=== PATIENT | female | born 1970 | race Caucasian/White ===

== ENCOUNTER 2019-01-26 14:43 | Emergency (ER) | payer BC, OTHER ==
--- NOTE | 2019-01-26 14:59 | ED ---
Lower Extremity - HPI Summary HPI Summary: Patient is a 48 y/o female who presents to the ED s/p foot injury around 11:00. This morning she was walking downstairs and missed a few steps, injuring her right foot. Patient heard a crunch and was not able to bear weight on her foot. Patient took Ibuprofen and applied ice to the area, however she is still having pain. Pain is rated a 4/10 in severity. She states that her muscles feel tight and her foot is swollen. Patient denies any bruising. She denies the use of blood thinners. - History of Current Complaint Chief Complaint: EDExtremityLower Stated Complaint: POSS BROKEN RIGHT FOOT PER PT Time Seen by Provider: 01/26/19 14:57 Hx Obtained From: Patient Mechanism Of Injury: Fall From Height Of: - several stairs Onset/Duration: Still Present - 11:00 this morning Severity Currently: Moderate Pain Intensity: 4 Pain Scale Used: 0-10 Numeric Timing: Constant Location: Is Discrete @ - R foot Character Of Pain: Stiffness - tightness Associated Signs And Symptoms: Positive: Swelling. Negative: Bruising Aggravating Factor(s): Weight Bearing Able to Bear Weight: No - Allergies/Home Medications Allergies/Adverse Reactions: Allergies Allergy/AdvReac Type Severity Reaction Status Date / Time No Known Allergies Allergy Verified 01/26/19 14:54 PMH/Surg Hx/FS Hx/Imm Hx Endocrine/Hematology History: Denies: Hx Diabetes Cardiovascular History: Denies: Hx Hypertension Infectious Disease History: No Infectious Disease History: Denies: Traveled Outside the [place] in Last 30 Days - Family History Known Family History: Positive: Cardiac Disease - CAD, Hypertension, Diabetes - Social History Alcohol Use: None Hx Substance Use: No Substance Use Type: Reports: None Hx Tobacco Use: No Smoking Status (MU): Never Smoked Tobacco Review of Systems Positive: Myalgia - R foot pain/tightness, Edema - R foot Negative: Bruising All Other Systems Reviewed And Are Negative: Yes Physical Exam - Summary Physical Exam Summary: Appearance: well appearing, no pain distress Skin: warm, dry, reflects adequate perfusion, no swelling or redness of right foot Head/face: normal Eyes: EOMI, THERESA ENT: mucous membranes moist Neck: supple, non-tender Respiratory: CTA, breath sounds present Cardiovascular: RRR, pulses symmetrical Abdomen: non-tender, soft Bowel Sounds: present Musculoskeletal: strength/ROM intact, no pain of right malleoli or talus, tenderness to arch of right foot, normal phalangeal bones and metatarsals, Lisfranc discomfort, mild crepitus with drawer test Neuro: normal, sensory motor intact, A&Ox3 Triage Information Reviewed: Yes Vital Signs On Initial Exam: Initial Vitals Temp Pulse Resp BP Pulse Ox 98.8 F 94 16 137/78 99 01/26/19 14:49 01/26/19 14:49 01/26/19 14:49 01/26/19 14:49 01/26/19 14:49 Vital Signs Reviewed: Yes Procedures - Splinting Right Lower Extremity Location: Right ankle Hand-Made Type: orthoglass Splint: posterior walking Pre-Proc Neuro Vasc Exam: normal Post-Proc Neuro Vasc Exam: normal Diagnostics - Vital Signs Vital Signs Temp Pulse Resp BP Pulse Ox 01/26/19 14:49 98.8 F 94 16 137/78 99 - Laboratory Lab Statement: Any lab studies that have been ordered have been reviewed, and results considered in the medical decision making process. - Radiology Foot XR Radiology Interpretation Completed By: ED Physician Summary of Radiographic Findings: Proximal third metatarsal shaft fracture. Pending official radiology report. Re-Evaluation - Re-Evaluation First Eval Re-Evaluation Time: 15:38 Change: Unchanged Comment: Discussed XR findings. Lower Extremity Course/Dx - Course Course Of Treatment: Nurse's notes reviewed. The patient with mild crepitance and no fracture seen at the proximal shaft of the third metatarsal. X-ray originally read as negative by radiology, addended to report the fracture. Discussed with the orthopedist given the possibility of Lisfranc injury. Posterior splint applied and patient put on crutches. She will follow up with orthopedic the morning. - Diagnoses Differential Diagnosis/HQI/PQRI: Positive: Other - Lisfranc injury, metatarsal fracture, foot sprain, contusion Provider Diagnoses: Fracture of third metatarsal bone - Physician Notifications Discussed Care Of Patient With: Debbie To Time Discussed With Above Provider: 15:40 Instructed by Provider To: Other - Dr. To will follow up with the patient tomorrow. At 15:58 Dr. Barrera said he will add an addendum to the radiology report. Discharge - Sign-Out/Discharge Documenting (check all that apply): Patient Departure - Discharge Patient Received Moderate/Deep Sedation with Procedure: No - Discharge Plan Condition: Good Disposition: HOME Prescriptions: Hydrocodone/Acetaminophen [[place] 5-325 Tablet] 1 each PO TID PRN #10 tablet MDD 3 PRN Reason: Severe Pain Patient Education Materials: Foot Fracture in Adults (ED) Referrals: Debbie To MD [Medical Doctor] - Sav Rose MD [Primary Care Provider] - Additional Instructions: Ice, elevate and no weightbearing. Walk with crutches. Call the orthopedist first thing in the morning for prompt follow-up. Ibuprofen for baseline pain. - Billing Disposition and Condition Condition: GOOD Disposition: Home - Attestation Statements Document Initiated by Liliya: Yes Documenting Scribe: Karol Rao Provider For Whom Liliya is Documenting (Include Credential): Elvis Abdullahi MD Scribe Attestation: Karol Boothe, scribed for Elvis Abdullahi MD on 01/26/19 at 1727. Scribe Documentation Reviewed: Yes Provider Attestation: The documentation as recorded by the [email or web address] diaz accurately reflects the service I personally performed and the decisions made by , Elvis Abdullahi MD Status of Scribe Document: Viewed
[2019-01-26 16:00] VITALS: BP 117/68
== END 2019-01-26 15:59 | disposition home or self-care (01) ==
LOC: ED 14:43
DX: S92.331A Displaced fracture of third metatarsal bone, right foot, initial encounter for closed fracture (principal); W10.9XXA Fall (on) (from) unspecified stairs and steps, initial encounter; Y92.018 Other place in single-family (private) house as the place of occurrence of the external cause
CPT/HCPCS: 99282

== ENCOUNTER 2019-01-30 08:49 | Day surgery (SDC) | payer OTHER ==
[2019-01-30] MEDS ORDERED: ceFAZolin 2 GM PREMIX in ORs 2 GM/50 ML BAG IVPB ONE (09:06)
[2019-01-30] MEDS ORDERED: Lidocaine 2% PF * 5 ML VIAL ONE ×2 (09:58→09:59)
[2019-01-30] MEDS ORDERED: Midazolam* 1 MG/ML 2 ML VIAL (2 MG) ONE (09:58)
[2019-01-30] MEDS ORDERED: fentaNYL* 50 MCG/ML 2 ML VIAL (100 MCG VIAL) ONE (09:58)
[2019-01-30] MEDS ORDERED: Propofol* 10 MG/ML 20 ML BTL ONE (09:58)
[2019-01-30] MEDS ORDERED: Dexmedetomidine* 200 MCG/2 ML 2 ML VIAL ONE (10:00)
[2019-01-30] MEDS ORDERED: ROPIVACAINE 5 MG/ML 30 ML BTL (0.5%) ONE (10:00)
[2019-01-30] MEDS ORDERED: Bupivacaine 0.5%* 50 ML VIAL ONE (10:34)
[2019-01-30] MEDS ORDERED: EPHEDrine (Pressors)* 50 MG/ML VIAL ONE (11:31)
[2019-01-30] MEDS ORDERED: Dexamethasone IV* 4 MG/ML 1 ML (4 MG) ONE (11:31)
[2019-01-30] MEDS ORDERED: HYDROmorphone INJ1* 1 MG/ML SYRINGE IV PRN (11:47)
[2019-01-30] MEDS ORDERED: DiMENhydriNATE IV* 50 MG/ML VIAL IV PUSH PRN (11:47)
[2019-01-30] MEDS ORDERED: oxyCODONE TAB* 5 MG TAB PO PRN (11:47)
[2019-01-30] MEDS ORDERED: Naloxone* 0.4 MG/ML 1 ML VIAL IV PRN (11:47)
[2019-01-30] MEDS ORDERED: Ketorolac INJ* 30 MG/ML 1 ML VIAL ONE (12:13)
[2019-01-30] MEDS ORDERED: Ondansetron INJ* 2 MG/ML VIAL ONE (12:13)
[2019-01-30] MEDS ORDERED: Metoclopramide IV* 5 MG/ML 2 ML VIAL ONE (12:13)
[2019-01-30] MEDS ORDERED: Acetaminophen IV 1GM/100ML * 100 ML ONE (12:14)
--- NOTE | 2019-01-30 13:10 | OP ---
Operative Report - Blank - Operative Report Date of Operation: 01/30/19 Note: PATIENT: Yeni Ruiz DATE OF : 1970 DATE OF SURGERY: 01/30/2019 SURGEON: Juan Li MD MARKETING SALES MANAGER: YOLIE Toro, whos assistance was necessary for positioning, retraction, help with instrumentation, and closure. ANESTHESIOLOGIST: Dr. Miller PREOPERATIVE DIAGNOSIS: Right foot Lisfranc injury with 2nd TMT and Lisfranc joint dislocations, medial cuneiform fracture, and 3rd and 4th metatarsal fractures. POSTOPERATIVE DIAGNOSIS: Right foot Lisfranc injury with 1st TMT instability, 2nd TMT and Lisfranc joint dislocations, medial cuneiform fracture, and 3rd and 4th metatarsal fractures. OPERATION: 1. Right foot open reduction and internal fixation of the 1st TMT joint 2. Right foot open reduction and internal fixation of the 2nd TMT joint 3. Right foot open reduction and internal fixation of the medial cuneiform fracture 4. Right foot closed treatment of 3rd and 4th metatarsal fractures ANESTHESIA: General + nerve block IMPLANTS: Arthrex CFS plate and screws and 4.0mm cannulated screw TOURNIQUET TIME: Less than 1 hour with a well padded calf tourniquet at 225 mmHg SPECIMENS: none ESTIMATED BLOOD LOSS: minimal COMPLICATIONS: none STATUS: Stable from the operating room to the recovery room and then home. INDICATIONS FOR PROCEDURE: Yeni sustained a right foot Lisfranc injury. Both operative and non operative treatment alternatives were reviewed. Further, the nature and risks of surgery were reviewed in careful detail, in the office as well as the pre-operative holding area. Our discussions regarding the risks of surgery included, but were not limited to, infection, wound problems, nerve injury, neuroma, RSD, persistent symptoms, blood clot, fracture, post-traumatic arthritis, hardware pain, need for further surgery, malunion, nonunion, persistent midfoot instability, failure of the surgery, and even the remote chance of catastrophic complication, including loss of limb. DESCRIPTION OF PROCEDURE: The patient was seen in the preoperative holding unit and informed written consent was obtained. The appropriate extremity was marked. The patient was then brought to the operating room and carefully positioned on the operating room table. Anesthesia was induced. All bony prominences were padded with great care. A chlorhexidine based pre-scrub was performed followed by a chloraprep prep and drape in standard sterile fashion. A surgical safety pause was then conducted in which we confirmed the appropriate patient, extremity, planned procedure, availability of equipment, indication and administration of prophylactic antibiotics, and DVT prophylaxis in the form of a compression boot on the non-surgical extremity. We began by placing a well-padded calf tourniquet in a sterile fashion 3 finger breadths beneath the fibular head. We then performed an Esmarch exsanguination of the limb and inflated the tourniquet to 225 mmHg. I utilized a longitudinal incision centered at the base of the first and second metatarsals. I carefully dissected down through the soft tissues with great care taken to protect the superficial and deep neurovascular structures. The deep neurovascular bundle was visualized and carefully protected throughout the procedure. I then exposed the first and second tarsometatarsal joints, both of which were subluxated and grossly unstable. I also exposed the fracture at the medial cuneiform and cleaned out the fracture hematoma. This resulted in a nice visualization of the joints. The joints were carefully inspected and given the lack of comminution of the articular surface, I elected not to proceed with a primary fusion, and instead perform an ORIF as we had discussed preoperatively. The first TMT joint was manually reduced and a 0.062 K-wire was used to hold the joint provisionally reduced. Fluoroscopy was used to confirm a good reduction. A straight plate was then chosen and contoured to fit the dorsum of the first TMT joint and medial column. This was held provisionally with olive wires and then 5 screws were placed into the first metatarsal and medial cuneiform. The provisional fixation was then removed and the joint was held well reduced. This was confirmed fluoroscopically. All of the screws had excellent purchase. I then turned my attention to the medial cuneiform fracture and second TMT joint. The fracture was reduced provisionally with a dental pick and then a large pointed reduction clamp was used to reduce the second TMT joint and Lisfranc joint complex. A separate incision was made medially and a guidewire for a 4.0 mm cannulated screw was driven from the medial cuneiform through the base of the second metatarsal under fluoroscopic guidance. This was measured and then overdrilled with a cannulated drill. A 4.0 mm cannulated screw was then placed over the guidewire. The pointed reduction clamp was then removed and the joints and fracture were held well reduced by the hardware. Fluoroscopy was again used to confirm this. There did not appear to be any hardware in any of the joints. I examined the intercuneiform joints, and did not appreciate any instability. Fluoroscopy was then used to image the 3rd and 4th metatarsal fractures, which appeared well reduced and without any correlated joint instability. Therefore, I decided to treat the 3rd and 4th metatarsal fractures in a closed manner. Final fluoroscopic images were obtained. At this point, we irrigated copiously and then closed in layers meticulously utilizing 3-0 Monocryl and 3-0 nylon for the skin. A sterile dressing was then applied followed by a splint with the ankle in a neutral position. The patient was then awakened from anesthesia and transferred to the recovery room in stable condition. There were no complications. All needle and sponge counts were correct at the end of the case. ATTESTATION: I attest I was present and scrubbed and performed the critical portions of the procedure myself. POSTOPERATIVE PLAN: Follow up will be in 2 weeks for likely suture removal and postop x-rays. The postoperative plan is to be [id number] for 2 months , then weight-bearing as tolerated in a boot between months 2-3, and then into regular shoes at 3 months postop.
[2019-01-30 13:42] VITALS: BP 128/70
[2019-01-30] MEDS ORDERED: oxyCODONE TAB* 5 MG TAB ONE (14:01)
[2019-01-30] MEDS ORDERED: Cyclobenzaprine TAB* 10 MG PO ONE (14:11)
== END 2019-01-30 20:09 | disposition home or self-care (01) ==
LOC: OR 08:49
PROVIDERS: ATTEND Orthopaedic Surgery
DX: S92.331A Displaced fracture of third metatarsal bone, right foot, initial encounter for closed fracture (principal); S92.341A Displaced fracture of fourth metatarsal bone, right foot, initial encounter for closed fracture; S92.241A Displaced fracture of medial cuneiform of right foot, initial encounter for closed fracture; S93.324A Dislocation of tarsometatarsal joint of right foot, initial encounter; W10.9XXA Fall (on) (from) unspecified stairs and steps, initial encounter; Y92.9 Unspecified place or not applicable; G89.18 Other acute postprocedural pain
CPT/HCPCS: 81025; A9270-GY; C1713; C1776; J0690; J1100; J1885; J2250; J2405; J2704; J2765; J2795; J3010; J3490

== ENCOUNTER → 2019-06-03 05:43 | Day surgery (SDC) | payer OTHER ==
[~2019-06-03 05:43] MED LIST: Acetaminophen IV 1GM/100ML * 1,000 MG/100 ML VIAL IVPB ONE; Acetaminophen IV 1GM/100ML * 100 ML ONE; Buffered Lidocaine 1% SYRIN* 1 ML/SYRINGE INTRADERM ONE; Bupivacaine 0.5%* 50 ML MDV VIAL ONE; Dexamethasone IV* 4 MG/ML 1 ML (4 MG) ONE; DiMENhydriNATE IV* 50 MG/ML VIAL IV PUSH PRN; DiMENhydriNATE IV* 50 MG/ML VIAL ONE; Famotidine IV* 10 MG/ML 2 ML (20 mg) IV ONE; Famotidine IV* 10 MG/ML 2 ML (20 mg) ONE; HYDROmorphone INJ1* 1 MG/ML SYRINGE IV PRN; Ketorolac INJ* 30 MG/ML 1 ML VIAL ONE; Lactated Ringers 1000 ML Bag* 1,000 ML IV SCH; Midazolam* 1 MG/ML 5 ML VIAL (5 MG) ONE; Naloxone* 0.4 MG/ML 1 ML VIAL IV PRN; Ondansetron INJ* 2 MG/ML VIAL ONE; Propofol* 10 MG/ML 20 ML BTL ONE; ceFAZolin 2 GM PREMIX in ORs 2 GM/50 ML BAG ONE; fentaNYL* 50 MCG/ML 2 ML VIAL (100 MCG VIAL) ONE; oxyCODONE TAB* 5 MG TAB ONE; oxyCODONE TAB* 5 MG TAB PO PRN
--- NOTE | 2019-06-03 08:46 | OP ---
Operative Report - Blank - Operative Report Date of Operation: 06/03/19 Note: PATIENT: Yeni Ruiz DATE OF : 1970 DATE OF SURGERY: 06/03/2019 SURGEON: Juan Li MD ENDOSCOPY SUPPORT SPECIALIST: YOLIE Reed, whos assistance was necessary for positioning, retraction, help with instrumentation, and closure. ANESTHESIOLOGIST: Dr. Canseco PREOPERATIVE DIAGNOSIS: Right foot painful retained hardware POSTOPERATIVE DIAGNOSIS: Right foot painful retained hardware OPERATION: 1. Right foot, removal of implants, deep. 2. Stress fluoroscopy performed by surgeon under anesthesia. ANESTHESIA: LMA IMPLANTS: None implanted TOURNIQUET TIME: Less than 1 hour with an ankle Esmarch tourniquet SPECIMENS: none ESTIMATED BLOOD LOSS: minimal COMPLICATIONS: none STATUS: Stable from the operating room to the recovery room and then home. INDICATIONS FOR PROCEDURE: Yeni had a prior right foot Lisfranc injury that underwent ORIF. Both operative and non operative treatment alternatives were reviewed. Further, the nature and risks of surgery were reviewed in careful detail, in the office as well as the pre-operative holding area. Our discussions regarding the risks of surgery included, but were not limited to, infection, wound problems, nerve injury, neuroma, RSD, persistent symptoms, blood clot, need for further surgery , post-traumatic arthritis, failure of the surgery, and even the remote chance of catastrophic complication. DESCRIPTION OF PROCEDURE: The patient was seen in the preoperative holding unit and informed written consent was obtained. The appropriate extremity was marked. The patient was then brought to the operating room and carefully positioned on the operating room table. Anesthesia was induced. All bony prominences were padded with great care. A chlorhexidine based pre-scrub was performed followed by a chloraprep prep and drape in standard sterile fashion. A surgical safety pause was then conducted in which we confirmed the appropriate patient, extremity, planned procedure, availability of equipment, indication and administration of prophylactic antibiotics, and DVT prophylaxis in the form of a compression boot on the non-surgical extremity. We began by placing an ankle Esmarch tourniquet. I utilized the prior dorsal foot incision to access the medial column hardware. I used blunt dissection to expose the hardware and took great care not to disturb the neurovascular bundle. The hardware was exposed and a screw wood pile driver operator was used to remove the screws. A freer was used to loosen the plate which was then removed. A rongeur was used to smooth out the bone. I then turned my attention to the percutaneous screw. I utilized a small K wire to cannulate the cannulated screw. I dissected down to expose the hardware. We removed the screw utilizing a screwdriver without difficulty. I then performed an external rotation and abduction stress fluoroscopic examination. No instability was appreciated at the Lisfranc articulation. A fluoroscopic image was obtained demonstrating removal of hardware. At this point, we irrigated copiously and then closed in layers meticulously utilizing 3-0 Monocryl and 3-0 nylon for the skin. A sterile dressing was then applied. The patient was then awakened from anesthesia and transferred to the recovery room in stable condition. There were no complications. All needle and sponge counts were correct at the end of the case. ATTESTATION: I attest I was present and scrubbed and performed the critical portions of the procedure myself. POSTOPERATIVE PLAN: The plan is to remove the sutures in 2 weeks.
[2019-06-03 09:48] VITALS: BP 90/54
== END | disposition home or self-care (01) ==
LOC: OR 05:43
PROVIDERS: ATTEND Orthopaedic Surgery
DX: T84.84XA Pain due to internal orthopedic prosthetic devices, implants and grafts, initial encounter (principal); S93.321D Subluxation of tarsometatarsal joint of right foot, subsequent encounter; X58.XXXD Exposure to other specified factors, subsequent encounter; Y92.9 Unspecified place or not applicable
CPT/HCPCS: 76000; 81025; 88300; A9270-GY; C1776; J0690; J1100; J1240; J1885; J2250; J2405; J2704; J3010; J3490

== ENCOUNTER 2022-03-21 17:28 | Observation (INO) ==
[2022-03-21 19:50] LABS: Hematocrit 27 % (35-47); Hemoglobin 8.8 g/dL (12.0-16.0); Mean Corpuscular HGB Conc 33 g/dL (31-36); Mean Corpuscular Hemoglobin 26 pg (27-31); Mean Corpuscular Volume 80 fL (80-97); Mean Platelet Volume 8.9 fL (7.4-10.4); Platelet Count 177 10^3/uL (150-450); Red Blood Count 3.35 10^6 /uL (3.70-4.87); Red Cell Distribution Width 28 % (10-15); White Blood Count 10.2 10^3/uL (3.5-10.8)
[2022-03-21 20:07] LABS: ABS Lymphocytes 0.6 10^3/ul (1.0-4.8); ABS Monocytes 0.4 10^3/ul (0-0.8); ABS Neutrophils 9.1 10^3/ul (1.5-7.7); Eosinophil % 0.1 %; Lymphocyte % 6.2 %
[2022-03-21 20:25] LABS: ALT 11 U/L (7-52); AST 14 U/L (13-39); Albumin 3.3 g/dL (3.2-5.2); Albumin/Globulin Ratio 1.7 (1-3); Alkaline Phosphatase 52 U/L (35-149); Anion Gap 5 mmol/L (2-11); Blood Urea Nitrogen 8 mg/dL (6-24); CO2 Carbon Dioxide 26 mmol/L (22-32); Calcium 8.1 mg/dL (8.6-10.3); Chloride 96 mmol/L (101-111); Globulin 1.9 g/dL (2-4); Glucose 167 mg/dL (70-100); Potassium 3.8 mmol/L (3.5-5.0); Sodium 127 mmol/L (135-145); Total Protein 5.2 g/dL (6.4-8.9); eGFR CKD-EPI 101.2 (>60)
[2022-03-21 20:31] LABS: HCG Pregnancy < 0.60 mIU/mL
[2022-03-21] MEDS ORDERED: Lactated Ringers 1000 ml BAG 500 ML IV ONE (21:44)
[2022-03-21] MEDS ORDERED: [UNRECOGNIZED DRUG - OTHER] PO ONE (22:00)
[2022-03-21] MEDS ORDERED: NS 0.9% 1000 ml BAG 1,000 ML IV SCH (23:15)
[2022-03-21] MEDS ORDERED: NS 0.9% 500 ml BAG 500 ML IV ONE (23:16)
[2022-03-22 02:01] LABS: Hematocrit 22 % (35-47); Hemoglobin 7.4 g/dL (12.0-16.0)
[2022-03-22 03:38] LABS: % Iron Saturation 14 % (15-55); Iron 43 ug/dL (50-212); Total Iron Binding Capacity 314 mcg/dL (250-450); Transferrin 224 mg/dL (203-362); Unsaturated Iron Binding 271 ug/dL
[2022-03-22 03:58] LABS: Ferritin 7.6 ng/mL (11-307)
[2022-03-22 05:56] LABS: Hematocrit 23 % (35-47); Hemoglobin 7.5 g/dL (12.0-16.0); Mean Corpuscular HGB Conc 33 g/dL (31-36); Mean Corpuscular Hemoglobin 26 pg (27-31); Mean Corpuscular Volume 79 fL (80-97); Mean Platelet Volume 8.7 fL (7.4-10.4); Platelet Count 161 10^3/uL (150-450); Red Blood Count 2.86 10^6 /uL (3.70-4.87); Red Cell Distribution Width 28 % (10-15); White Blood Count 7.5 10^3/uL (3.5-10.8)
[2022-03-22 06:12] LABS: ABS Eosinophils 0.1 10^3/ul (0-0.6); ABS Lymphocytes 1.2 10^3/ul (1.0-4.8); ABS Monocytes 0.4 10^3/ul (0-0.8); ABS Neutrophils 5.8 10^3/ul (1.5-7.7); Eosinophil % 1.1 %; Lymphocyte % 16.3 %
[2022-03-22 06:35] LABS: Calcium 7.5 mg/dL (8.6-10.3); Potassium 3.3 mmol/L (3.5-5.0)
[2022-03-22 06:41] LABS: eGFR CKD-EPI 106.1 (>60)
[2022-03-22] MEDS ORDERED: KCL 20 MEQ/100 ML IVPREMIX 20 MEQ/100 ML BAG IV SCH (08:00)
[2022-03-22 08:17] LABS: Magnesium 1.7 mg/dL (1.9-2.7)
[2022-03-22] MEDS ORDERED: Iron Sucrose 200 MG in NS 0.9% 100 ml BAG 100 ML IVPB SCH (09:00)
[2022-03-22 12:15] VITALS: BP 113/70
== END 2022-03-22 13:45 | disposition home or self-care (01) ==
LOC: ED 17:28 → INTOOBSV 23:12 → EDHOLD 23:12 → SSU 03-22 08:14
PROVIDERS: ADMIT Internal Medicine; ATTEND Internal Medicine